=== PATIENT | female | born 1985 | race Caucasian/White ===

== ENCOUNTER 2018-07-09 15:53 | Emergency (ER) | payer SELFPAY ==
[~2018-07-09] VITALS: Ht 160 cm; Wt 66.7 kg
[2018-07-09 16:29] VITALS: Ht 160 cm; Wt 66.7 kg
[2018-07-09 17:42] LABS: AMPHETAMINE QUAL UR POSITIVE (See below)
[2018-07-09 18:07] VITALS: BP 143/90
== END 2018-07-09 18:07 | disposition home or self-care (01) ==
LOC: ED 15:53
PROVIDERS: Emergency Medicine
DX: T43.621A Poisoning by amphetamines, accidental (unintentional), initial encounter (principal); R50.9 Fever, unspecified; Y92.89 Other specified places as the place of occurrence of the external cause
CPT/HCPCS: 86788; 86789; Q0162

== ENCOUNTER 2020-10-25 04:54 | Emergency (ER) | payer MEDICAID, SELFPAY ==
[~2020-10-25] VITALS: Ht 160 cm; Wt 72.8 kg
[2020-10-25 04:58] VITALS: BP 153/100; Ht 160 cm; Wt 72.8 kg
== END 2020-10-25 07:23 | disposition left against medical advice (07) ==
LOC: ED 04:54
DX: R00.2 Palpitations (principal); R06.02 Shortness of breath; Z20.828 Contact with and (suspected) exposure to other viral communicable diseases
CPT/HCPCS: 83880; 84439; U0003

== ENCOUNTER 2020-10-25 08:45 | Emergency (ER) | payer MEDICAID, SELFPAY ==
[~2020-10-25] VITALS: Ht 160 cm; Wt 73.0 kg
[2020-10-25 09:42] VITALS: BP 153/90; Ht 160 cm; Wt 73.0 kg
== END 2020-10-25 12:30 | disposition home or self-care (01) ==
LOC: ED 08:45
DX: R00.2 Palpitations (principal); G43.909 Migraine, unspecified, not intractable, without status migrainosus; F15.90 Other stimulant use, unspecified, uncomplicated